=== PATIENT | male | born 1995 | race Two or more races ===

== ENCOUNTER 2022-08-13 19:09 | Emergency (ER) | payer OTHER ==
[~2022-08-13] VITALS: Ht 177.8 cm; Wt 86.2 kg
--- NOTE | 2022-08-13 19:23 | NUR ---
TO ER BED 14, BIBRA 860 AND [employer] FROM [facility] FOR "I WANT FENTANYL", AAOX3, BREATHING EVEN AND NON LABORED, [employer] AT BEDSIDE, AWAITING MD ORDERS
[2022-08-13] MEDS ORDERED: AMMONIA NASAL INHALATION 1 EA PACK NAS ONE (20:40)
--- NOTE | 2022-08-13 22:14 | NUR ---
Patient discharged to home in stable condition. Written and verbal after care instructions given. Patient verbalizes understanding of instruction.
[2022-08-13 22:23] VITALS: BP 136/78
== END 2022-08-13 22:24 ==
LOC: ER 19:12
DX: F11.10 Opioid abuse, uncomplicated (principal); R53.83 Other fatigue; F17.200 Nicotine dependence, unspecified, uncomplicated; Z60.2 Problems related to living alone
CPT/HCPCS: 82962-TC